=== PATIENT | female | born 1970 | race Caucasian/White ===

== ENCOUNTER 2018-10-21 06:58 | Day surgery (SDC) | payer OTHER ==
[2018-10-21] MEDS ORDERED: LIDOCAINE 2% (SDV) 5 ML INJ (09:00)
[2018-10-21] MEDS ORDERED: PROPOFOL 60 ML (09:00)
== END 2018-10-21 10:51 | disposition home or self-care (01) ==
LOC: GIL 06:58
DX: Z12.11 Encounter for screening for malignant neoplasm of colon (principal); K64.8 Other hemorrhoids; E03.9 Hypothyroidism, unspecified
CPT/HCPCS: 45378; 84703

== ENCOUNTER 2019-02-02 09:36 | Day surgery (SDC) | payer OTHER ==
[2019-02-02] MEDS ORDERED: SOD CHLORIDE 0.9% 1,000 ML IV (11:00)
[2019-02-02] MEDS ORDERED: CEFAZOLIN 2 GM/50 ML (PMX) 50 ML IVPB (11:00)
[2019-02-02] MEDS ORDERED: MEPERIDINE 100 MG INJ (12:35)
[2019-02-02] MEDS ORDERED: ONDANSETRON 4 MG INJ (12:35)
[2019-02-02] MEDS ORDERED: PROPOFOL 20 ML (12:35)
[2019-02-02] MEDS ORDERED: METOCLOPRAMIDE 10 MG INJ (12:35)
[2019-02-02] MEDS ORDERED: LIDOCAINE 2% (SDV) 5 ML INJ (12:35)
[2019-02-02] MEDS ORDERED: CEFAZOLIN 1 GM INJ (12:35)
[2019-02-02] MEDS: BUPIVACAINE 0.25% (MPF) 30 ML INJ (13:04)
[2019-02-02] MEDS ORDERED: HYDROmorphONE 1 MG/5 ML IV SYRINGE IV ×3 (13:30)
[2019-02-02] MEDS ORDERED: MEPERIDINE 25 MG INJ IV (13:30)
[2019-02-02] MEDS ORDERED: FENTAnyl 50 MCG/ML VIAL IV ×3 (13:30)
[2019-02-02] MEDS ORDERED: METOCLOPRAMIDE 10 MG INJ IV (13:30)
[2019-02-02] MEDS ORDERED: ONDANSETRON 4 MG INJ IV (13:30)
[2019-02-02] MEDS ORDERED: LABETALOL HCL 20MG INJ IV (13:30)
[2019-02-02] MEDS ORDERED: MIDAZOLAM 1 MG/ML 2 ML INJ IV (13:30)
[2019-02-02] MEDS ORDERED: hydrALAzine 20 MG INJ IV (13:30)
[2019-02-02] MEDS ORDERED: DIPHENHYDRAMINE 50 MG INJ IV (13:30)
[2019-02-02] MEDS ORDERED: EPHEDrine 25 MG/5 ML SYG IV (13:30)
[2019-02-02] MEDS: OXYCODONE/ACETAMINOPHEN (5/325) TAB PO (15:10)
== END 2019-02-02 15:59 | disposition home or self-care (01) ==
LOC: SDS 09:36
DX: N60.91 Unspecified benign mammary dysplasia of right breast (principal); N60.31 Fibrosclerosis of right breast; K21.9 Gastro-esophageal reflux disease without esophagitis; E66.01 Morbid (severe) obesity due to excess calories; Z68.41 Body mass index [BMI] 40.0-44.9, adult; E11.9 Type 2 diabetes mellitus without complications; I10 Essential (primary) hypertension; J45.909 Unspecified asthma, uncomplicated; M25.512 Pain in left shoulder; M25.561 Pain in right knee; G56.01 Carpal tunnel syndrome, right upper limb; M54.41 Lumbago with sciatica, right side; G89.29 Other chronic pain; M19.012 Primary osteoarthritis, left shoulder; H93.11 Tinnitus, right ear; E55.9 Vitamin D deficiency, unspecified; K75.81 Nonalcoholic steatohepatitis (NASH); R22.9 Localized swelling, mass and lump, unspecified; N92.1 Excessive and frequent menstruation with irregular cycle
CPT/HCPCS: 19125; 84703; 88307